=== PATIENT | female | born 1960 | race Caucasian/White ===

== ENCOUNTER → 2018-10-07 10:14 | Outpatient (CLI) | payer OTHER, SELFPAY ==
[2018-10-07 12:26] LABS: Add Manual Diff / Slide Review NO; Basophils Percent Auto 0.6 % (0-2); Hematocrit 40.6 % (36-46); Hemoglobin 13.5 g/dL (12.0-16.0); Lymphocytes Percent Auto 31.6 % (25-40); Mean Corpuscular HGB Conc 33.2 % (30-36); Mean Corpuscular Hemoglobin 28.7 PG (26-34); Mean Corpuscular Volume 86.5 fL (80-100); Neutrophils Absolute Auto 4500 /uL (3000-5900); Neutrophils Percent Auto 61.8 % (50-75); Platelet Count 210 X10^3/uL (150-400); Red Blood Cell Count 4.69 X10^6/uL (4.0-5.2); Red Cell Distribution Width 14.6 % (11.6-14.8); White Blood Cell Count 7.4 X10^3/uL (4.5-11.0)
[2018-10-07 12:40] LABS: Blood Urea Nitrogen 9 mg/dL (7-17); Calcium 9.3 mg/dL (8.4-10.2); Carbon Dioxide 30 mmol/L (22-32); Chloride 103 mmol/L (98-107); Estimated Glomerular Filt Rate > 60.0 mL/min (>60); Glucose 111 mg/dL (70-100); HEMOLYSIS < 15 (0-50); Potassium 4.5 mmol/L (3.4-5.1); Sodium 142 mmol/L (137-145)
== END ==
PROVIDERS: Visit Provider Orthopaedic Surgery Foot and Ankle Surgery
DX: M20.11 Hallux valgus (acquired), right foot (principal); M21.619 Bunion of unspecified foot; Z01.812 Encounter for preprocedural laboratory examination
CPT/HCPCS: 36415; 80048; 85025; 93005; 93010

== ENCOUNTER 2018-10-24 09:48 | Day surgery (SDC) | payer OTHER, SELFPAY ==
[2018-10-23 09:46] VITALS: BMI 24.2
[2018-10-24] VITALS (8 sets, daily range): BP systolic 101–128; BP diastolic 63–82; PULSE 71–101; RESP 9–20; TEMP 36–36.6; O2SAT 92–97; BMI 24.2
--- NOTE | 2018-10-24 | DI.RAD.S_ITS ---
PROCEDURE: XR FOOT LT MIN 3V INDICATIONS: LEFT GREAT TOE , HAMMER TOE REPAIR AND FUSION TECHNIQUE: 4 views of the foot were acquired. COMPARISON: [facility], [place], XR FOOT 3+ VIEWS LEFT, 09/04/2018, 13:06. FINDINGS: 4 intraoperative fluoroscopy images demonstrate arthrodesis at the first tarsometatarsal joint with a surgical plate and multiple surgical screws. There is bunionectomy. Post surgical changes also noted at the base of the first proximal phalanx IMPRESSION: Post surgical changes related to arthrodesis of the first tarsometatarsal joint, bunionectomy and osteotomy of the first proximal phalanx. Dictated by: Driss Tadeo M.D. on 10/24/2018 at 16:20 Approved by: Driss Tadeo M.D. on 10/24/2018 at 16:23
[2018-10-24] MEDS: LACTATED RINGERS 1,000 ML 42 ML IV ×2 (10:31→14:06)
--- NOTE | 2018-10-24 11:16 | PM.PREOP ---
Pre-operative Note Interval Note Pre-op Check: Yes History & Physical Reviewed by Physician and Yes Exam Performed Changes: No
--- NOTE | 2018-10-24 11:17 | PM.OP.1 ---
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 Fusion tarsometatarsal joint, single, left. CPT code 12349 2. Modified Dickerson bunionectomy of left foot CPT code 68723 3. Aspiration bone marrow, iliac crest, left CPT Code 54047 4. Chandan osteotomy proximal phalanx great toe, left CPT 60288 Same procedure as scheduled: Yes Indications: Patient is a 57-year-old female with bilateral painful hallux valgus deformities. She has failed conservative treatment and desires surgical treatment. She has elected for hallux valgus correction of the left foot. She does have hypermobility of her 1st TMT joint and therefore has been indicated for a 1st tarsometatarsal fusion along with distal soft tissue correction for her hallux valgus. The risks benefits and alternatives to the surgery were discussed in detail with the patient and include but are not limited to infection, wound dehiscence, over correction, under correction, malunion, nonunion, delayed union, stiffness, incomplete relief of pain, worsening arthritis, symptomatic hardware, need for removal of hardware were further surgeries, DVT, PE, anesthetic and cardiopulmonary complications were discussed. Patient has elected to proceed with surgery and informed consent was signed in the office. Surgeon: Judi Donis Click Yes if Unassisted: Yes Anesthesia Type: General Operative Notes Findings: Large medial eminence 1st metatarsal head. Gross instability of the 1st TMT joint Right lateral ligaments and tendons with incomplete correction of the hallux valgus prior to surgical release. Persistent hallux valgus interphalangeus following correction therefore an Chandan osteotomy of the proximal phalanx was completed with the 8 mm paragon stable Closure Type: primary Specimen(s): none sent Implants & Drains: paragon 28 Lapidus plate with 3.5 screws 4.0 solid lag screw 5 cc the mineral cortical allograft fibers 8 mm paragon 28 stable Applied: other (Split) Estimated Blood Loss (mL): 10 Blood products transfused: none Tourniquet time (min): 106 Procedure in detail: The patient was seen in the preoperative area the site of surgery was marked informed consent confirmed. The patient was then brought back to the operating room by the anesthesia team and placed supine on operative table. General anesthesia was administered. All bony prominences were well-padded. Well-padded thigh tourniquet was placed on the left thigh. The left hip and left leg were prepped and draped in the standard sterile fashion. A formal time-out procedure was performed confirming the patient's side and site of surgery administration of preoperative antibiotics within 30 min of incision and presence of informed consent. Implants were accounted for in the room. All personnel were in agreement. An Esmarch bandage was utilized to exsanguinate the extremity and the tourniquet was elevated 250 mm of mercury and stayed there for approximately 106 min. Modified Dickerson procedure: Incision was made in the dorsal 1st web space and extended proximally 3 cm. Dissection was carried through the skin and subcutaneous tissue down through the deep tissue to the adductor tendon. The adductor tendon was sharply dissected from the lateral sesamoid and from the base of the proximal phalanx the transverse ligament was also released. The adductor tendon was dissected and retracted proximally in the wound and tagged with Vicryl suture. The metatarsal sesamoid joint was freed up and the lateral capsule was perforated and stretched. Once I was satisfied with the correction this provided 2 2 0 PDS sutures were placed from the 1st metatarsal neck through the adductor tendon to the 2nd metatarsal neck periosteum these were left untied until the end of the case. Next a medial incision was made along the 1st metatarsal head extending approximately 4 cm this was later extended distally for the Chandan osteotomy. Dissection was taken through the skin and subcutaneous tissues in the midline with care to avoid the nerve branches. Once down to the level of the medial eminence subperiosteal dissection was completed to expose the 1st MTP joint and medial eminence. The medial eminence was large and hypertrophied and extremely prominent. The TTS saw was used to resect the medial eminence just medial to the sagittal sulcus in line with the lateral border of the foot. This wafer was retained for later bone grafting. Next a small sliver of the plantar leaf of the medial capsule was excised so that the capsule could later be repaired in a tightened fashion. First tarsometatarsal fusion: Next attention was turned to the 1st TMT joint. Dorsal medial incision was made just medial to the EHL tendon. This was taken down to the skin and subcutaneous tissue. The EHL tendon was mobilized laterally and the 1st tarsometatarsal joint was exposed and dissected subperiosteal E. gross hypermobility of the joint was noted. The 1st tarsometatarsal joint was prepared using the osteotomes. The K-wire retractor was utilized for distraction. Synthes joint prep set was used to scrape the cartilage followed by the 4.0 oval bur a 2.0 drill and then osteotome to fish scale the joint surfaces. Bleeding cancellous bone was obtained. Next the allograft bone along with the bone obtained from the medial eminence resection and the iliac crest bone marrow aspirate were mixed to gather and then placed into the 1st TMT arthrodesis site. Once this was in place the joint was reduced and provisionally pinned. This was checked on fluoroscopic AP lateral and oblique images and once satisfactory reduction was obtained the paragon Lapidus plate was placed in a dorsal medial fashion and secured proximally and distally with BB tacks. The aiming arm for the lag screw was secured to the plate. The wire for the lag screw was placed through the guide and advanced across the joint and checked on fluoroscopy. Next this was overdrilled. And countersunk. The wire and guide were then removed and the near cortex was over drilled for a 4 mm solid fully-threaded lag screw. Prior to placing this all the way down the remaining transfixing K-wires were removed. The lag screw was advanced and obtained excellent purchase and compression. Next screws were placed in the dorsal medial plate with locking screws proximally followed by a nonlocking screw in neutral mode distally and a final locking screw. Left iliac crest bone marrow aspiration: Bone marrow aspirate was obtained from the left iliac crest to augment the fusion. The paragon needle was used iliac crest was palpated stab incision was made over the iliac crest. The needle and trocar were introduced to the level of the bone and mallet it through the bone into the iliac crest. The trocar was removed and syringe placed and bone marrow aspirate was obtained in small aliquots of approximately 2 cc each to maximize healed. Approximately 8 cc of aspirate was withdrawn. The needle was removed and a single suture placed. Chandan osteotomy: After fixation of the 1st tarsometatarsal fusion attention was returned distally. The correction was evaluated and felt to have residual hallux valgus interphalangeus therefore the decision was made for an Chandan osteotomy. The saw was used to make a transverse cut along the base of the proximal phalanx without violating the lateral cortex and a proximally 2 mm wedge was cut back in this. The osteotomy was green sticked and secured in place with an 8 mm paragon staple. Providing excellent compression and correction. Next to the medial capsulotomy was reapproximating reducing the sesamoids this was done with 2 0 Maxon suture in a [id number]-mari-laxe fashion. Then attention was turned to the 1st dorsal web space incision where the PDS sutures holding the adductor tendon were then tied while a double folded Ray-Dariel was in the 1st webspace. Final x-rays were obtained demonstrating appropriate alignment and deformity correction and appropriate hardware placement. The tourniquet was then released hemostasis achieved and the wounds were irrigated. Wounds were closed in a layered fashion with 2 0 Vicryl deep for 0 Monocryl subcutaneously and 4 O nylon in the skin. Dressings were placed with Xeroform gauze Webril cleaning and a posterior splint. Patient was awoken from anesthesia and taken to the PACU in good condition. There no immediate complications from this procedure. All counts were correct. Complications: none Condition: stable Disposition: PACU Plan for aftercare: Patient will be nonweightbearing on the left lower extremity she will elevate strictly for the 1st 2-3 weeks after surgery to reduce pain and swelling. She will have pain medication and will take 325 mg of aspirin daily starting postop day 1 for 6 weeks for DVT prophylaxis. Patient will follow up as scheduled in the clinic
[2018-10-24] MEDS: MIDAZOLAM 2 MG/2 ML VIAL IV (11:45)
[2018-10-24] MEDS: CEFAZOLIN 2 GM/100 ML FROZ.PIGGY IV (11:52)
--- NOTE | 2018-10-24 12:28 | SUR.OPER ---
Supine on padded OR bed, head on pillow, arms secured on padded arm boards at <90 degrees abduction, legs uncrossed, left leg draped free, safety belt at abdomen, tape over blanket over right lower leg.
[2018-10-24] MEDS: BUPIVACAINE 0.5% (PF) VIAL 30 ML INJ (12:52)
[2018-10-24] MEDS: OXYCODONE/ACETAMINOPHEN 5/325 TABLET 1 TAB PO (15:25)
[2018-10-24] MEDS: diphenhydrAMINE 50 MG/ML VIAL 25 MG IV (15:29)
--- NOTE | 2018-10-24 15:32 | SUR.PHASEI ---
Pt c/o itching, Dr. Tam notified, VVO for Benadryl. Pt medicated.
== END 2018-10-24 16:27 | disposition home or self-care (01) ==
PROVIDERS: PCP Physician Assistant Medical; Visit Provider Orthopaedic Surgery Foot and Ankle Surgery
PROC: (CPT 28740; principal; 2018-10-24 10:45)
PROC: 0QBP0ZZ Excision of Left Metatarsal, Open Approach (ICD-10-PCS; CPT 28292; 2018-10-24 10:45)
PROC: (CPT 28740; 2018-10-24 10:45)
DX: M20.12 Hallux valgus (acquired), left foot (principal); M21.612 Bunion of left foot; F17.210 Nicotine dependence, cigarettes, uncomplicated; F41.9 Anxiety disorder, unspecified
CPT/HCPCS: 28740; 38232; 28292; 73630; 76001; J0690; J1100; J1170; J1200; J2250; J2405; J2704; J3010